=== PATIENT | male | born 1955 | race Caucasian/White ===

== ENCOUNTER 2023-10-22 09:15 | Outpatient (OUT) | payer MEDICARE, OTHER, SELFPAY ==
--- NOTE | 2023-10-22 09:27 | MR_ITS ---
[address] [address] Patient Name: SANDY RAMIREZ MRN: [id number] date: 1955 Sex: M Assigned Patient Location: MRI Current Patient Location: MRI Accession/Order Number: [id number] Exam Date: 10/22/2023 09:40 Report Date: 10/22/2023 16:57 At the request of: PEREZ RICHARDS Procedure: MR shoulder RT wo con EXAMINATION: MR shoulder RT wo con HISTORY: Primary Osteoarthritis Right Shoulder M10.011 COMPARISON: No relevant comparison available. TECHNIQUE: A variety of imaging planes and parameters were utilized for visualization of suspected pathology. Imaging was performed without or with contrast as indicated by examination type. FINDINGS: ROTATOR CUFF REGION CUFF TENDONS: High-grade strain versus partial tear of the supraspinatus tendon. CUFF MUSCLES: Normal appearing muscles. DELTOID: No significant atrophy or tear. LONG BICEPS TENDON: No abnormal signal, attrition, or tear. LABRUM/BICEPS ANCHOR SUPERIOR: Not well identified. ANTERIOR/INFERIOR: Not well identified. POSTERIOR: Not well identified. CAPSULE No visible capsular laxity or thickening. AC JOINT REGION AC JOINT: Marked osteoarthropathy with moderate to severe narrowing of the underlying coracoacromial arch. AC LIGAMENTS: Normal acromioclavicular ligament. CC LIGAMENTS: Normal coracoclavicular ligaments. ACROMION: Mild lateral downsloping. SUBACROMIAL BURSA: No significant effusion. HYALINE CARTILAGE: Complete loss of the glenohumeral joint space with [id number] articulation and remodeling of the articular surfaces. OTHER BONES: Marrow edema deep to the articular surface of the humeral head suggestive of bone bruising, but this could also be secondary to loss of overlying cartilage. Degenerative osteophytes along the inferior articular margin of humeral head. OTHER OBSERVATIONS: Negative. No other significant findings or glenohumeral effusion. MR/MR shoulder RT wo con IMPRESSION: 1. Suspect partial tear of the supraspinatus tendon, but this could also represent high-grade strain. 2. Marked degenerative changes of the acromioclavicular joint which would predispose to rotator cuff injury. 3. Complete loss of the glenohumeral joint space with [id number] articulation, remodeling, bone bruising, and periarticular degenerative osteophytes. This likely accounts for the lack of visibility of the labrum. Electronically authenticated by: TA MARCUS Date: 10/22/2023 16:57
== END 2023-10-22 09:16 | disposition home or self-care (01) ==
LOC: MRI 09:21
PROVIDERS: PCP Family Medicine; Visit Provider Orthopaedic Surgery
DX: M19.011 Primary osteoarthritis, right shoulder (principal)
CPT/HCPCS: 73221